=== PATIENT | male | born 1960 | race Caucasian/White ===

== ENCOUNTER 2016-06-14 11:52 | Emergency (ER) | payer MEDICAID ==
[~2016-06-14] VITALS: Ht 190.5 cm; Wt 108.6 kg
[2016-06-14] MEDS ORDERED: ONDANSETRON 2MG/ML, 2ML IVPush ONE (13:30)
[2016-06-14] MEDS ORDERED: SODIUM CHLORIDE FLUSH 10ML SYR IVF ONE (13:30)
[2016-06-14] MEDS ORDERED: FAMOTIDINE 20 MG/2 ML IVPush ONE (13:30)
[2016-06-14] MEDS ORDERED: SODIUM CHLORIDE 0.9% 1,000ML IVBOLUS ONE (13:30)
[2016-06-14] MEDS ORDERED: FAMOTIDINE 20 MG/2 ML ONE (13:57)
[2016-06-14] MEDS ORDERED: ONDANSETRON 2MG/ML, 2ML ONE (13:57)
[2016-06-14] MEDS ORDERED: KETOROLAC 30 MG/1 ML IVPush ONE (14:30)
[2016-06-14] MEDS ORDERED: KETOROLAC 30 MG/1 ML ONE (14:42)
[2016-06-14 14:47] LABS: HEMOGLOBIN 15.2 g/dL (13.7-18.0)
[2016-06-14 15:00] LABS: ASPARTATE AMINO TRANSFERASE 23 U/L (15-37); BLOOD UREA NITROGEN 17 mg/dL (7-18)
[2016-06-14 16:12] VITALS: BP 152/87
== END 2016-06-14 16:15 | disposition home or self-care (01) ==
LOC: ED 16:09
DX: K52.9 Noninfective gastroenteritis and colitis, unspecified (principal)
CPT/HCPCS: 36415; 72072; 74022; 80053; 81003; 83605; 83690; 85025; 87040; 93005; 96361; 96374; 96375; 99285; J1885; J2405; J7030; S0028